=== PATIENT | male | born 1985 | race Caucasian/White ===

== ENCOUNTER 2018-04-16 18:44 | Emergency (ER) | payer MEDICARE, MEDICAID ==
[2018-04-16] MEDS ORDERED: Lidocaine 1% with EPINEPHrine 1:100,000 20 ML MDV INJECT ONE (19:38)
[2018-04-16] MEDS ORDERED: Bupivacaine 0.5% 10 ML SDV INJECT ONE (19:38)
--- NOTE | 2018-04-16 19:41 | EDM.PDOC ---
ED HPI GENERAL MEDICAL PROBLEM - General Chief Complaint: Skin Complaint Stated Complaint: BLEEDING SORE ON UPPER RIGHT ARM Time Seen by Provider: 04/16/18 19:02 Source of Information: Reports: Patient, Family (Fther), RN Notes Reviewed History Limitations: Reports: No Limitations - History of Present Illness INITIAL COMMENTS - FREE TEXT/NARRATIVE: The patient states that a mass has grown on the lateral aspect of his left upper arm over the past 3 weeks. Initially it started out as a small dot, but is now approximately 1 inch across, and bleeds, especially when he applies a Band-Aid to the area. He states that the lesion is not painful. He does not recall any injury. No prior similar lesions. The patient's PCP is Dr. Singletary. The patient states that he has been out of town for the past few weeks, and has therefore not been able to see Dr. Singletary. - Related Data Allergies Allergy/AdvReac Type Severity Reaction Status Date / Time No Known Allergies Allergy Verified 04/16/18 19:02 Home Meds: Home Meds . [Unable to Verify Home Med List] 04/16/18 [History] Past Medical History Cardiovascular History: Reports: Hypertension Musculoskeletal History: Reports: Gout (suspected, not confirmed. Currently untreated.) Neurological History: Reports: Other (See Below) (Cognitive delay) - Past Surgical History HEENT Surgical History: Reports: Oral Surgery (wisdom teeth extraction) Social & Family History - Tobacco Use Smoking Status *Q: Never Smoker Second Hand Smoke Exposure: No - Caffeine Use Caffeine Use: Reports: None - Alcohol Use Alcohol Use History: Yes Alcohol Use Frequency: Socially - Recreational Drug Use Recreational Drug Use: No - Living Situation & Occupation Living situation: Reports: Single, with Family (Parents) Occupation: Disabled ED ROS GENERAL - Review of Systems Review Of Systems: ROS reveals no pertinent complaints other than HPI. ED EXAM, SKIN/RASH Exam: See Below Exam Limited By: No Limitations General Appearance: Alert, WD/WN, No Apparent Distress Skin: Warm, Dry, Intact, Normal Color, No Rash Location, Skin: Upper Extremity, Left Characteristics: Other (2.5 cm diameter beefy red flat lesion, attached by a 0.5 cm stalk. Mild associated bleeding. Non-tender.) ED SKIN PROCEDURES - Additional/Other Procedure(s) Other (Free Text) Procedure(s): Procedure: Excision of skin tumor Anesthesia: 50:50 mixture of Course - Vital Signs Last Recorded V/S: Last Vital Signs Temp 37.2 C 04/16/18 18:58 Pulse 117 H 04/16/18 18:58 Resp 18 04/16/18 18:58 BP 152/102 H 04/16/18 18:58 Pulse Ox 96 04/16/18 18:58 - Orders/Labs/Meds Meds: Medications Discontinued Medications Generic Name Dose Route Start Last Admin Trade Name Krystyna PRN Reason Stop Dose Admin Bupivacaine HCl 10 ml 04/16/18 19:38 04/16/18 19:56 Sensorcaine-Mpf 0.5% INJECT 04/16/18 19:39 10 ml ONETIME ONE Administration Lidocaine/Epinephrine 20 ml 04/16/18 19:38 04/16/18 19:56 Xylocaine 1% With Epinephrine 1:100,000 INJECT 04/16/18 19:39 20 ml ONETIME ONE Administration - Re-Assessments/Exams Free Text/Narrative Re-Assessment/Exam: 04/16/18 19:[address] Coronado at 19:33. Based on the description, she suspects that the lesion may be a pyogenic granuloma. She feels that it is safe to remove it and send the specimen off to pathology. The plan will be for me to locally anesthetize with lidocaine with epinephrine and bupivacaine, then remove it at its base using a scalpel. I will use electrocautery to address any significant bleeding. The patient is to then follow-up with Dr. Coronado this coming 04/19/2017. 04/16/18 20:10 After preparing the area in a sterile fashion with Betadine and sterile drapes, the area was infiltrated with a 50:50 admixture of 1% lidocaine with epinephrine and 0.5% bupivacaine without epinephrine, with good local blanching. The patient reported anesthesia to the area. The tumor was then removed at the base of the stalk using a #15 scalpel, and collected in a container to be sent to pathology. Local bleeding to the base of the stalk was cauterized with electrocautery, then a Band-Aid was placed over the area of excision. The patient tolerated the procedure well. Departure - Departure Time of Disposition: 20:12 Disposition: Home, Self-Care 01 Condition: Good Clinical Impression: Skin tumor - Discharge Information *PRESCRIPTION DRUG MONITORING PROGRAM REVIEWED*: Not Applicable *COPY OF PRESCRIPTION DRUG MONITORING REPORT IN PATIENT RAULITO: Not Applicable Referrals: Car Singletary MD [Primary Care Provider] - Pallavi Coronado MD [Physician] - Forms: ED Department Discharge Additional Instructions: You were seen in the emergency room for evaluation of a 3 week growth on your upper right arm. The growth was removed in the ER, and sent to pathology for evaluation. Take over the counter Tylenol or ibuprofen as needed for discomfort. Keep the area clean with ordinary soap and water, then cover with a Band-Aid daily. Follow-up with the surgeon Dr. Coronado in the clinic this coming 04/19/2018. Contact your office first thing in the morning, and let them know that you are following up from an ER visit. If any other problems, please do not hesitate to return to the ER.
== END 2018-04-16 20:25 | disposition home or self-care (01) ==
LOC: JD.ED 18:44
DX: D49.89 Neoplasm of unspecified behavior of other specified sites (principal); I10 Essential (primary) hypertension
CPT/HCPCS: 11200; 88305; 99283; J3490; 11403; 99282